=== PATIENT | male | born 1970 | race Two or more races ===

== ENCOUNTER 2023-12-29 10:14 | Emergency (ER) | payer MEDICAID ==
[2023-12-29 11:39] LABS: BASOPHILS ABSOLUTE AUTO 0.03 K/uL (0.00-0.10); BASOPHILS PERCENT AUTO 0.8 % (0.1-1.3); EOSINOPHILS PERCENT AUTO 0.5 % (0.0-5.4); HEMATOCRIT 45.3 % (38.4-49.7); HEMOGLOBIN 15.8 g/dL (12.9-16.9); IMMATURE GRAN PERCENT AUTO 0.3 % (0.0-0.7); LYMPHOCYTES ABSOLUTE AUTO 0.76 K/uL (0.8-3.3); LYMPHOCYTES PERCENT AUTO 19.3 % (11.4-47.7); MEAN CORPUSCULAR HEMOGLOBIN 29.5 pg (31.6-35.5); MEAN CORPUSCULAR HGB CONC 34.9 g/dL (31.6-35.5); MEAN CORPUSCULAR VOLUME 84.7 fL (81.4-99.0); MONOCYTES ABSOLUTE AUTO 0.24 K/uL (0.20-0.90); MONOCYTES PERCENT AUTO 6.1 % (3.3-12.6); NEUTROPHILS ABSOLUTE AUTO 2.88 K/uL (1.0-7.6); PLATELET COUNT,PLT 161 K/uL (130-375); RED BLOOD CELL COUNT 5.35 M/uL (4.14-5.76); WHITE BLOOD CELL COUNT,WBC 3.9 K/uL (3.2-11.0)
[2023-12-29] MEDS: HYDROmorphone 0.5 MG/0.5 ML Syringe IVPUSH ONE (11:39)
[2023-12-29 11:44] LABS: EOSINOPHILS ABSOLUTE AUTO 0.02 K/uL (0.00-0.40); IMMATURE GRAN ABSOLUTE AUTO 0.01 K/uL (0.00-0.23)
[2023-12-29 11:50] LABS: CORONAVIRUS COVID-19 NAA NEGATIVE (NEGATIVE); INFLUENZA A NAA POSITIVE (NEGATIVE); INFLUENZA B NAA NEGATIVE (NEGATIVE); RESPIRATORY SYNCYTIAL VIR NAA NEGATIVE (NEGATIVE)
[2023-12-29 12:02] LABS: A/G RATIO 0.8 (1.2-2.2); ALANINE AMINOTRANSFERASE,ALT 50 U/L (12-78); ALBUMIN 3.5 g/dL (3.4-5.0); ALKALINE PHOSPHATASE 106 U/L (46-116); ASPARTATE AMNIOTRANSFERASE,AST 65 U/L (15-37); BILIRUBIN TOTAL 0.4 mg/dL (0.2-1.0); BLOOD UREA NITROGEN,BUN 11 mg/dL (7-18); CALCIUM 8.6 mg/dL (8.5-10.1); CARBON DIOXIDE,CO2 31 mmol/L (21-32); CHLORIDE,CL 98 mmol/L (100-108); CREATININE 1.2 mg/dL (0.8-1.3); EST CRCL DRUG DOSING (CG) 70.46 mL/min; ESTIMATED GFR 73 mL/min (>60); GLUCOSE RANDOM 123 mg/dL (74-106); PROTEIN TOTAL,TP 7.9 g/dL (6.4-8.2); SODIUM,NA 135 mmol/L (140-148)
[2023-12-29 12:07] LABS: ANION GAP 8.9 mmol/L (5.0-14.0); POTASSIUM,K 2.9 mmol/L (3.6-5.2)
[2023-12-29] MEDS: Sodium Chloride 0.9% 1,000 ML IV SCH (12:23)
[2023-12-29] MEDS: Potassium Chloride 20 MEQ Tab.ER PO ONE (13:21)
== END 2023-12-29 13:30 | disposition home or self-care (01) ==
LOC: JP.ED 10:14
DX: R10.32 Left lower quadrant pain (principal); J10.1 Influenza due to other identified influenza virus with other respiratory manifestations; E87.6 Hypokalemia; Z86.16 Personal history of COVID-19
CPT/HCPCS: 0241U; 36415; 74176; 80053; 83605; 85025; 96361; 96374; 99284; A9270; J1170; J7030